=== PATIENT | female | born 1990 | race American Indian/Alaskan Native ===

== ENCOUNTER 2022-02-07 19:36 | Emergency (ER) | payer SELFPAY ==
[2022-02-07 20:18] VITALS: BP 142/96
--- NOTE | 2022-02-09 18:18 | Electrocardiograph Report ---
[facility] Test Date: 2022-02-07 Test Time: 19:41:20 Pat Name: LANDON CASEY Department: Room: Gender: F [employer]: CARLYN : 1990 Requested By: HANG COTE Order Number: [id number] Reading MD: Kong Tovar Measurements Intervals [place] Rate: 76 P: 37 [place]: 168 QRS: 67 QRSD: 93 T: 20 QT: 379 QTc: 426 Interpretive Statements Sinus rhythm No previous ECG available for comparison Electronically Signed On 02-09-2022 18:18:42 EDT by Kong Tovar
== END 2022-02-07 22:00 | disposition left against medical advice (07) ==
LOC: ED 19:36
DX: R07.9 Chest pain, unspecified (principal); Z53.21 Procedure and treatment not carried out due to patient leaving prior to being seen by health care provider
CPT/HCPCS: 93005